=== PATIENT | female | born 1945 | race Caucasian/White ===

== ENCOUNTER → 2023-12-19 07:23 | Outpatient (REF) | payer MEDICARE, OTHER, SELFPAY | LOC: DHCBC/DCA 07:23 | PROVIDERS: ATTENDING PHYSICIAN Internal Medicine; FAMILY PHYSICIAN Family Medicine | DX: R06.09 Other forms of dyspnea (principal); I25.10 Atherosclerotic heart disease of native coronary artery without angina pectoris; Z95.1 Presence of aortocoronary bypass graft; I50.32 Chronic diastolic (congestive) heart failure; I35.0 Nonrheumatic aortic (valve) stenosis | CPT/HCPCS: 78452; 93017; A9500; J2785 ==

== ENCOUNTER → 2024-01-02 14:10 | Outpatient (REF) | payer MEDICARE, OTHER, SELFPAY | LOC: DHCBC MAIN 14:10 | PROVIDERS: ATTENDING PHYSICIAN Internal Medicine; FAMILY PHYSICIAN Family Medicine | DX: I25.10 Atherosclerotic heart disease of native coronary artery without angina pectoris (principal); R06.09 Other forms of dyspnea; Z95.5 Presence of coronary angioplasty implant and graft; Z95.1 Presence of aortocoronary bypass graft; I50.32 Chronic diastolic (congestive) heart failure; I35.0 Nonrheumatic aortic (valve) stenosis | CPT/HCPCS: 93306 ==

== ENCOUNTER → 2024-12-20 09:01 | Outpatient (REF) | payer MEDICARE, OTHER, SELFPAY ==
[2024-12-20 10:36] LABS: HDL Cholesterol 47 mg/dl; LDL Cholesterol, Calculated 84 mg/dl; Total Cholesterol 164 mg/dl (50-199); Triglyceride 169 mg/dl (10-149); Very Low Density Lipoprotein 33 mg/dl (0-30)
== END ==
LOC: RCS 09:01
PROVIDERS: ATTENDING PHYSICIAN Internal Medicine; FAMILY PHYSICIAN Family Medicine
DX: R06.09 Other forms of dyspnea (principal); I25.10 Atherosclerotic heart disease of native coronary artery without angina pectoris; I50.32 Chronic diastolic (congestive) heart failure; I35.0 Nonrheumatic aortic (valve) stenosis; E78.2 Mixed hyperlipidemia; E78.1 Pure hyperglyceridemia
CPT/HCPCS: 36415; 80061; 93306